=== PATIENT | female | born 1995 | race African-American/Black ===

== ENCOUNTER 2020-06-14 14:06 | Emergency (ER) | payer OTHER ==
[~2020-06-14] VITALS: Ht 172.7 cm; Wt 56.7 kg
[2020-06-14] MEDS ORDERED: KEFLEX500 M1 PO (15:56)
[2020-06-14 16:47] VITALS: BP 115/84
== END 2020-06-14 16:37 | disposition home or self-care (01) ==
LOC: ER 14:06
DX: S68.115A Complete traumatic metacarpophalangeal amputation of left ring finger, initial encounter (principal); W26.8XXA Contact with other sharp object(s), not elsewhere classified, initial encounter; Y93.89 Activity, other specified; Y92.89 Other specified places as the place of occurrence of the external cause; Y99.8 Other external cause status